=== PATIENT | female | born 1945 | race Caucasian/White ===

== ENCOUNTER 2017-03-17 09:53 | Emergency (ER) | payer MEDICARE, OTHER ==
[2017-03-17 10:37] LABS: BASOPHILS % 0.6 (0.0-1.5); EOSINOPHILS % 2.8 % (0.0-6.8); MEAN CORPUSCULAR HEMOGLOBIN 31.7 pg (28.0-34.0); MEAN CORPUSCULAR VOLUME 91.2 fl (80.0-100.0); MONOCYTES % 4.2 % (0.0-11.0); NEUTROPHILS # 5.9 # k/uL (1.4-7.7)
[2017-03-17 10:57] LABS: eGFR (African) > 60; eGFR (Non-African) > 60
[2017-03-17] MEDS ORDERED: 0.9 % SODIUM CHLORIDE 1,000 ML IV ONE (11:00)
--- NOTE | 2017-03-17 11:18 | Diagnostic Imaging Report ---
JOSE REDD (TOOL CRIB SUPERVISOR) - ER [facility] [address] [facility] [address] [address] Report Submission Date: Mar 17, 2017 10:54:41 AM POSTAL CLERK Patient Study Name: MARELY BLANDON Date: Mar 17, 2017 10:43:19 AM POSTAL CLERK Modality Type: CR Gender: F Description: CHEST : 45 Institution: [facility] Physician: JOSE REDD) - ER Examination: Portable chest History: Evaluate lungs Comparison exam: None provided Findings: Single view of the chest demonstrates a normal cardiac and mediastinal silhouette. Chronic appearing interstitial changes. Lung ohara without focal infiltrate. No blunting of the costophrenic margins. Left midlung granuloma. Osseous structures are appropriate for age. Impression: No acute appearing pulmonary process. Electronically signed on Mar 17, 2017 10:54:41 AM POSTAL CLERK by: Spencer MANE
[2017-03-17] MEDS ORDERED: CloNIDine HCL 0.1 MG TABLET PO ONE ×2 (11:37→11:38)
--- NOTE | 2017-03-17 12:03 | ED Physician Documentation ---
Upper Respiratory Symptoms - HISTORIAN Historian: patient - HPI Stated Complaint: SOA Chief Complaint: Cough/ Upper Respiratory Onset: hours Severity: mild Associated Symptoms: sore throat, hoarseness. denies: fever, chills, sweating, earache, runny nose, sinus pain, sinus drainage, hay fever, shortness of breath Worsened by Deep Breath: No Further Comments: yes (71 year old female patient presents with complaints of being "hoarse" and anxious. Patient reports symptoms started around [id number], did not use any OTC medication ACCESS RN.) - ROS CONST/EYES: denies: weakness CVS/RESP: none LYMPH: denies: leg swelling, rash, swollen glands, ankle swelling, other GI/: none NEURO/PSYCH: denies: fainting, dizziness, confusion, anxiety, depression, other MS/SKIN: denies: joint pain, muscle aches, rash, other - PAST HX Lung Disease: none PE Risk Factors: hypertension Other History: other (chronic sinusitis) Allergies/Adverse Reactions: Allergies Allergy/AdvReac Type Severity Reaction Status Date / Time albuterol AdvReac Tremors Verified 03/17/17 10:46 Home Medications: Ambulatory Orders Medication Instructions Recorded Fexofenadine HCl 180 mg PO DAILY #30 u2 05/16/12 Triamcinolone Acetonide [Nasacort] 10.8 ml NS DAILY 03/12/14 amLODIPine BESYLATE [Norvasc] 5 mg PO DAILY #30 tablet 03/17/17 - SOCIAL HX Smoking History: non-smoker - FAMILY HX Family History: denies: none - VITAL SIGNS Vital Signs: Vital Signs Temp Pulse Resp BP Pulse Ox 97.4 F L 84 19 161/86 98 03/17/17 09:53 03/17/17 12:20 03/17/17 12:20 03/17/17 12:20 03/17/17 12:20 - REVIEWED ASSESSMENTS Nursing Assessment Reviewed: Yes Vitals Reviewed: Yes Progress - Progress Progress: Discussed hypertension. Patient reports she was on lisinopril which caused her to cough. Dr Saleh changed to losartan, but she stopped that over 1 year ago. " I didn't like it." Patient has not followed up with PCP regarding BP. Case discussed with Dr Saleh. Will start patient on norvasc 5mg po qd. Hypertension retreated with clonidine while in ER. Improved with 1 dose. Education on hypertension, strongly encouraged follow up. Reviewed lab results; questions answered. ED Results Lab/Radiology - Lab Results Lab Results: Lab Results 03/17/17 03/17/17 03/17/17 11:00 10:29 10:25 WBC RBC Hgb Hct MCV MCH MCHC RDW Plt Count Neut % (Auto) Lymph % (Auto) [place] % (Auto) Eos % (Auto) Baso % (Auto) Neut # (Auto) Lymph # (Auto) [place] # (Auto) Eos # (Auto) Baso # (Auto) Reactive Lymphs % Reactive Lymphs # Sodium 142 mmol/L mmol/L (136-145) Potassium 3.7 mmol/L mmol/L (3.5-5.1) Chloride 105 mmol/L mmol/L (98-107) Carbon Dioxide 25 mmol/L mmol/L (22-30) BUN 18 mg/dL H mg/dL (7-17) Creatinine 0.70 mg/dL mg/dL (0.52-1.04) Estimated Creat Clear 105 Est GFR ( Amer) > 60 (60 - ) Est GFR (Non-Af Amer) > 60 (60 - ) Glucose 106 mg/dL mg/dL (74-106) Calcium 9.9 mg/dL mg/dL (8.4-10.2) Total Bilirubin 0.4 mg/dL mg/dL (0.2-1.3) AST 25 U/L U/L (15-46) ALT 38 U/L U/L (13-69) Alkaline Phosphatase 69 U/L U/L (38-126) Troponin I < 0.03 ng/mL L ng/mL (0.03-0.06) Total Protein 7.3 g/dL g/dL (6.3-8.2) Albumin 4.2 g/dL g/dL (3.5-5.0) Influenza A (Rapid) Negative (NEGATIVE) Influenza B (Rapid) Negative (NEGATIVE) 03/17/17 10:25 WBC 8.80 K/ul K/ul (4.00-12.00) RBC 4.77 M/ul M/ul (3.90-5.20) Hgb 15.1 g/dL g/dL (12.0-16.0) Hct 43.5 % % (34.5-46.5) MCV 91.2 fl fl (80.0-100.0) MCH 31.7 pg pg (28.0-34.0) MCHC 34.8 g/dL g/dL (30.0-36.0) RDW 13.5 % % (11.3-14.3) Plt Count 218 K/mm3 K/mm3 (130-400) Neut % (Auto) 67.9 % % (39.0-79.0) Lymph % (Auto) 23.0 % % (16.0-50.0) [place] % (Auto) 4.2 % % (0.0-11.0) Eos % (Auto) 2.8 % % (0.0-6.8) Baso % (Auto) 0.6 (0.0-1.5) Neut # (Auto) 5.9 # k/uL # k/uL (1.4-7.7) Lymph # (Auto) 2.0 # k/uL # k/uL (0.6-4.0) [place] # (Auto) 0.4 # k/uL # k/uL (0.0-0.9) Eos # (Auto) 0.2 # k/uL # k/uL (0.0-0.6) Baso # (Auto) 0.0 # k/uL # k/uL (0.0-0.5) Reactive Lymphs % 1.5 % % (0.0-5.0) Reactive Lymphs # 0.1 # k/uL # k/uL (0.0-0.8) Sodium Potassium Chloride Carbon Dioxide BUN Creatinine Estimated Creat Clear Est GFR ( Amer) Est GFR (Non-Af Amer) Glucose Calcium Total Bilirubin AST ALT Alkaline Phosphatase Troponin I Total Protein Albumin Influenza A (Rapid) Influenza B (Rapid) - Orders Orders: ED Orders Category Date Time Status Continuous EKG monitoring Q30M Care 03/17/17 10:01 Active Continuous Pulse Oximetry Q30M Care 03/17/17 10:[address] IV Lock 1T Care 03/17/17 10:01 Active CHEST 2 VIEW [CHEST P.A.&LAT 2 VIEWS] [RAD] Stat Exams 03/17/17 Completed CBC/PLATELET/DIFF Stat Lab 03/17/17 10:25 Completed CMP Stat Lab 03/17/17 10:25 Completed INFLUENZA A&B Stat Lab 03/17/17 10:29 Completed TROPONIN I (cTnI) Stat Lab 03/17/17 11:00 Completed 0.9 % Sodium Chloride [Normal Saline] 1,000 ml Med 03/17/17 11:00 Discontinued IV NOW CloNIDine HCL [Catapress] Med 03/17/17 11:38 Discontinued 0.1 mg PO .STK-MED ONE CloNIDine HCL [Catapress] Med 03/17/17 11:37 Discontinued 0.1 mg PO NOW ONE EKG WITH COMPARISON Stat Ther 03/17/17 10:01 Ordered Upper Respiratory Symptoms - EXAM General Appearance: no acute distress, alert EENT: eyes nml inspection, nml ENT inspection, lids & conjunct. nml, PERRL, ear nml, nose nml, pharynx nml, airway nml, other (mildly hoareness noted. ) Respiratory: no resp. distress, breath sounds nml, no pain on inspiration, speaks full sentences, no pleuritic chest pain Abdomen: non-tender, no organomegaly, nml bowel sounds, no distention CVS: reg rate & rhythm, heart sounds normal, equal pulses, no murmur, no gallop , PMI nml, no JVD, no friction rub, 24 Skin: color nml, no rash, warm,dry Extremities: non-tender, normal range of motion, no evidence of injury, no edema , J, PATROL MAN Neuro/Psych: oriented x3, neuro intact, mood/affect nml, CN's nml as tested Discharge Clincal Impression: Laryngitis, Anxiety Hypertension Qualifiers: Hypertension type: essential hypertension Qualified Code(s): I10 - Essential ( primary) hypertension Prescriptions: amLODIPine BESYLATE [Norvasc] 5 mg PO DAILY #30 tablet Additional Instructions: collection supervisor your prescription and start it in the morning. Chloraseptic spray or lozenges as needed for throat pain. Warm salt water gargles as needed pain Increase your fluid intake juices, hot tea, non-caffeinated beverages Follow up with Dr Saleh next week for a BP check and to discuss anxiety management. Condition: Stable Disposition: 01 HOME, SELF-CARE Decision to Admit: NO Decision Time: 12:10
[2017-03-17 12:31] VITALS: BP 161/86
== END 2017-03-17 12:20 | disposition home or self-care (01) ==
LOC: ED 09:53
DX: J02.9 Acute pharyngitis, unspecified (principal); I10 Essential (primary) hypertension; F41.9 Anxiety disorder, unspecified
CPT/HCPCS: 71020; 80053; 84484; 85025; 87400; 96360; 99283; J7030; S1016

== ENCOUNTER 2017-06-25 18:27 | Emergency (ER) | payer MEDICARE, OTHER ==
[2017-06-25] MEDS ORDERED: LEVALBUTEROL HCL 1.25 MG/3 ML AMPUL.NEB NEB ONE ×2 (18:41→19:42)
--- NOTE | 2017-06-25 18:47 | ED Physician Documentation ---
General Adult - HISTORIAN Historian: patient - HPI Stated Complaint: wheezing Chief Complaint: General Adult Additional Information: Three days of increased wheezing in known asthmatic. Napoleon snot needed to use her nebulizer in years, and it no longer works. Allergic to albuterol (heart rate to 220) but can use levalbuterol. Seen at walk in clinic yesterday and started prednisone and zithromax. No better today. Had temp of 100 yesterday. Two hospitalizations for asthma but never intubated. No other modifying factors or associated signs.. - ROS CONST: fever (see above) - PAST HX Past History: asthma - SOCIAL HX Smoking History: non-smoker - FAMILY HX Family History: No (no significant) - VITAL SIGNS Vital Signs: Vital Signs Temp Pulse Resp BP Pulse Ox 161/86 03/17/17 12:20 - REVIEWED ASSESSMENTS Nursing Assessment Reviewed: Yes Vitals Reviewed: Yes <MICHAEL LIN - Last Filed: 06/25/17 19:12> - VITAL SIGNS Vital Signs: Vital Signs Temp Pulse Resp BP Pulse Ox 98.2 F 130 H 22 178/135 90 L 06/25/17 18:27 06/25/17 18:27 06/25/17 18:27 06/25/17 18:27 06/25/17 18:27 <Garrison Gomes - Last Filed: 06/25/17 22:55> - PAST HX Allergies/Adverse Reactions: Allergies Allergy/AdvReac Type Severity Reaction Status Date / Time albuterol AdvReac Tremors Verified 03/17/17 10:46 iodine AdvReac Anaphylaxis Verified 06/25/17 19:27 levofloxacin [From Levaquin] AdvReac Anaphylaxis Verified 06/25/17 19:27 metronidazole AdvReac Anaphylaxis Verified 06/25/17 19:27 Home Medications: Ambulatory Orders Medication Instructions Recorded Fexofenadine HCl 180 mg PO DAILY #30 u2 05/16/12 Triamcinolone Acetonide [Nasacort] 10.8 ml NS DAILY 03/12/14 Progress - Progress Progress: care to Dr. Gomes <MICHAEL LIN - Last Filed: 06/25/17 19:12> ED Results Lab/Radiology - Orders Orders: ED Orders Category Date Time Status CHEST 2VIEW [RAD] Stat Exams 06/25/17 Ordered Levalbuterol HCl [Xopenex] Med 06/25/17 18:41 Once 1.25 mg NEB NOW ONE <MICHAEL LIN - Last Filed: 06/25/17 19:12> - Orders Orders: ED Orders Category Date Time Status CHEST 2VIEW [RAD] Stat Exams 06/25/17 Completed Acetylcysteine [Mucomyst] Med 06/25/17 20:34 Discontinued 200 mg PO NOW ONE Acetylcysteine [Mucomyst] Med 06/25/17 22:41 Discontinued 200 mg PO NOW ONE Levalbuterol HCl [Xopenex] Med 06/25/17 18:41 Discontinued 1.25 mg NEB NOW ONE Levalbuterol HCl [Xopenex] Med 06/25/17 19:42 Discontinued 1.25 mg NEB NOW ONE methylPREDNISolone SOD SUCC [Solu-MEDROL] Med 06/25/17 19:43 Discontinued 125 mg IM NOW ONE <Garrison Gomes - Last Filed: 06/25/17 22:55> General Adult Physical Exam - PHYSICAL EXAM GENERAL APPEARANCE: mild distress EENT: eye inspection normal, ENT inspection normal, pharynx normal NECK: supple RESPIRATORY: no resp distress, wheezes (throughout) CVS: reg rate & rhythm, heart sounds normal BACK: other (thoracic kyphosis; fluid movements w/o pain) SKIN: warm/dry, normal color EXTREMITIES: no evidence of injury NEURO: CN's nml as tested, motor nml, sensation nml, cognition normal <MICHAEL LIN - Last Filed: 06/25/17 19:12> - PHYSICAL EXAM ABDOMEN: soft, no organomegaly, no distension <Garrison Gomes - Last Filed: 06/25/17 22:55> Discharge <MICHAEL LIN - Last Filed: 06/25/17 19:12> Comments: home use neb cpt-fu w/pcp as directed Decision to Admit: NO Decision Time: 22:55 <Garrison Gomes Last Filed: 06/25/17 22:55> Clincal Impression: acute exaberation copd asthma Referrals: Gayatri Saleh MD [Primary Care Provider] - 2 Days Condition: Good Disposition: 01 HOME, SELF-CARE
--- NOTE | 2017-06-25 19:41 | Diagnostic Imaging Report ---
MICHAEL LIN [address] [facility] [address] [address] Report Submission Date: Jun 25, 2017 7:37:20 PM CDT Patient Study Name: MARELY BLANDON Date: Jun 25, 2017 6:47:38 PM CDT Modality Type: DX Gender: F Description: CHEST : 45 Institution: Physician: MICHAEL LIN HISTORY: 71-year-old female with wheezing, swelling and ankles, history of asthma. COMPARISON: None available. TECHNIQUE: 2 views of the chest were performed. FINDINGS: There are calcified granulomas in the left lung. No pneumothorax, consolidative infiltrates, pleural effusions, or pulmonary edema. There may be calcified lymph nodes in the left hilum. The heart is borderline enlarged. There is mild to moderate thoracic degenerative disc disease. IMPRESSION: Old granulomatous disease of the chest without evidence of acute intrathoracic process. Electronically signed on Jun 25, 2017 7:37:20 PM CDT by: Yuriy MANE
[2017-06-25] MEDS ORDERED: methylPREDNISolone SOD SUCC 125 MG/2 ML VIAL IM ONE (19:43)
[2017-06-25] MEDS ORDERED: ACETYLCYSTEINE 200MG/ML 30ML PO ONE ×2 (20:34→22:41)
[2017-06-25 23:34] VITALS: BP 139/80
== END 2017-06-25 23:05 | disposition home or self-care (01) ==
LOC: ED 18:27
DX: J44.1 Chronic obstructive pulmonary disease with (acute) exacerbation (principal); J45.998 Other asthma
CPT/HCPCS: 71046; J0132; J2930; J7614; 94640; 96372; 99284

== ENCOUNTER 2017-06-27 07:36 | Emergency (ER) | payer MEDICARE, OTHER ==
--- NOTE | 2017-06-27 07:54 | ED Physician Documentation ---
General Adult - HISTORIAN Historian: patient, spouse - HPI Stated Complaint: sob Chief Complaint: General Adult Onset: days ago Timing: still present Severity: moderate Further Comments: yes (Pt is a 71 yo female with sob/wheezing and slight pain, 1 /10 severity, in her R upper back. Pt has hx asthma with 2 hospitalizations, but these occurred years ago and pt has not had asthma attacks until this past week. Pt was seen in clinic last week and rx'd steroids and zithromax. She came to ER on 2 days ago and was tx'd with xopenex and mucomyst. Pt has had adverse reactions to albuterol and reported that mucomyst had been given to her in the past to good effect. Pt came to ER because her home nebulizer is old and no longer works. She was given a rx for a new nebulizer 2 days ago, but has not got the nebulizer yet.) - ROS CONST: no problems EYES/ENT: none CVS/RESP: chest pain (slight upper back pain), shortness of breath GI/: none MS/SKIN/LYMPH: none - PAST HX Past History: asthma, hypertension, other (anxiety) Surgeries/Procedures: other (oral surgery) Allergies/Adverse Reactions: Allergies Allergy/AdvReac Type Severity Reaction Status Date / Time albuterol AdvReac Tremors Verified 06/27/17 08:05 iodine AdvReac Anaphylaxis Verified 06/27/17 08:05 levofloxacin [From Levaquin] AdvReac Anaphylaxis Verified 06/27/17 08:05 metronidazole AdvReac Anaphylaxis Verified 06/27/17 08:05 Home Medications: Ambulatory Orders Medication Instructions Recorded Fexofenadine HCl 180 mg PO DAILY #30 u2 05/16/12 Triamcinolone Acetonide [Nasacort] 10.8 ml NS DAILY 03/12/14 - SOCIAL HX Smoking History: non-smoker - FAMILY HX Family History: No - VITAL SIGNS Vital Signs: Vital Signs Temp Pulse Resp BP Pulse Ox 139/80 06/25/17 23:29 - REVIEWED ASSESSMENTS Nursing Assessment Reviewed: Yes Vitals Reviewed: Yes Progress - Progress Progress: CXR: 1. Possible minimal basilar atelectasis.. No focal consolidation, pleural effusion or pneumothorax. Pulmicort HFN Xopenex HFN Mucomyst 20% solution 3 ml HFN x 1 improved. Rx Xopenex (1.25mg/3ml). One HFN tx tid prn. 24 vials, 2 RF - EKG/XRAY/CT EKG: NSR (HR=98; normal axis; normal MT interval.) General Adult Physical Exam - PHYSICAL EXAM GENERAL APPEARANCE: mild distress EENT: pharynx normal NECK: normal inspection, supple RESPIRATORY: chest non-tender, wheezes CVS: reg rate & rhythm, heart sounds normal, no murmur ABDOMEN: soft, no organomegaly, normal bowel sounds BACK: normal inspection, no CVA tenderness SKIN: warm/dry, normal color EXTREMITIES: non-tender, normal range of motion, no evidence of injury, no edema NEURO: oriented X3, motor nml, sensation nml Discharge Clincal Impression: wheezing Referrals: Gayatri Saleh MD [Primary Care Provider] - Condition: Stable Disposition: 01 HOME, SELF-CARE Decision to Admit: NO Decision Time: 11:33
[2017-06-27] MEDS ORDERED: ASPIRIN 81 MG CHEW TAB PO ONE ×2 (07:59→08:10)
[2017-06-27] MEDS ORDERED: BUDESONIDE 0.5MG/2ML AMPUL.NEB NEB ONE (08:18)
[2017-06-27] MEDS ORDERED: LEVALBUTEROL HCL 1.25 MG/3 ML AMPUL.NEB NEB ONE (08:29)
[2017-06-27] MEDS ORDERED: BUDESONIDE 0.5MG/2ML AMPUL.NEB NEB SCH (09:00)
[2017-06-27 09:01] LABS: eGFR (African) > 60; eGFR (Non-African) > 60
[2017-06-27 09:06] LABS: BASOPHILS % 0.2 (0.0-1.5); MEAN CORPUSCULAR HEMOGLOBIN 30.7 pg (28.0-34.0); MEAN CORPUSCULAR VOLUME 92.9 fl (80.0-100.0); NEUTROPHILS # 11.9 # k/uL (1.4-7.7)
[2017-06-27] MEDS ORDERED: ACETYLCYSTEINE 200MG/ML 30ML PO ONE (09:35)
[2017-06-27] MEDS ORDERED: 0.9 % SODIUM CHLORIDE 500 ML IV ONE (10:11)
[2017-06-27] MEDS ORDERED: 0.9 % SODIUM CHLORIDE 1,000 ML IV ONE ×2 (10:17)
[2017-06-27] MEDS ORDERED: ACETYLCYSTEINE 200MG/ML 30ML INH ONE (10:30)
[2017-06-27 11:23] VITALS: BP 156/80
--- NOTE | 2017-06-27 15:09 | Diagnostic Imaging Report ---
[facility] [address] [facility] [address] Report Submission Date: Jun 27, 2017 8:51:17 AM CDT Patient Study Name: MARELY BLANDON Date: Jun 27, 2017 8:04:50 AM CDT Modality Type: DX Gender: F Description: CHEST : 45 Institution: [facility] Physician: CURTIS JOSHUA Single frontal view of the chest History: PT STATES CHEST PAIN,SOB,PRODUCTIVE COUGH X4 DAYS Comparison: June 25, 2017 Cardiac size is upper limits of normal. 7 mm left midlung calcified granuloma is again noted. Minimal basilar haziness.. No pleural effusion or pneumothorax. No acute osseous pathology. Impression: 1. Possible minimal basilar atelectasis.. No focal consolidation, pleural effusion or pneumothorax. Electronically signed on Jun 27, 2017 8:51:17 AM CDT by: Tami MANE
== END 2017-06-27 11:19 | disposition home or self-care (01) ==
LOC: ED 07:36
DX: J45.998 Other asthma (principal); I10 Essential (primary) hypertension
CPT/HCPCS: 71045; 80053; 82550; 82553; 83690; 83880; 84484; 85025; 85379; 85610; 85730; 93005; J0132; J7030; J7614; J7626; 94640; 96365; 99283; S1016

== ENCOUNTER 2017-07-09 13:55 | Outpatient (CLI) | payer MEDICARE, OTHER ==
--- NOTE | 2017-07-23 11:10 | CONSULTATION REPORT ---
PRIMARY CARE PROVIDER: Dr. Gayatri Saleh CONSULTING PHYSICIAN: Emmy Hamm MD CHIEF COMPLAINT: "I would like some help managing my asthma." SIGNIFICANT PROBLEM LIST: 1. Asthma diagnosed in 1976. 2. Hypertension. 3. Obstructive sleep apnea (ELVIRA). 4. History of pneumonia. 5. History of DVT. 6. "White count hypertension." 7. Multiple environmental allergies. HISTORY OF PRESENT ILLNESS: This is a 71-year-old female who has had a long history of asthma and would like some input with her medications and how to control her asthma. Overall, her asthma is usually very well controlled, she is usually off of prednisone. She is unable to take albuterol or salmeterol but can take levalbuterol (Xopenex). Patient states she developed a viral URI on June 24, 2017. She saw a nurse practitioner for cough and sinus congestion. She was prescribed Benzonatate, a prednisone taper, and azithromycin. Her shortness of breath worsened and she presented to [facility] Emergency Department on June 25. A chest x-ray was done and she required 3 nebulized doses of Xopenex, Mucomyst, and was given methylprednisolone 125 mg. She was also given Pulmicort (budesonide). On June 28, patient saw Dr. Saleh who put her on a prednisone taper and azithromycin. She currently states she is feeling better and she is finishing her prednisone taper. Patient brought all of her respiratory and sinus medicines with her. It was all on the bedside table and we reviewed all the medicines together. One thing that became apparent is that she was taking suboptimal doses of fluticasone and using theophylline on a p.r.n. basis. She states that she does have problems with sinus congestion and that her sinus problems can exacerbate her asthma. Currently, she is using a steroid nasal spray but only on a p.r.n. basis. She is also using Claudia and Sudafed. She states that these are her environmental allergies, pine, (both inhaled and contact), cedar, cottonwood, oak pollen, smoke, mold, mildew, scented candles , except lavender, ingested moctezuma peppers, and Cool Whip. Patient denies chest pain. There is no PND. There is no edema. Her weight is stable. Appetite is good. Energy level is good. Currently, there is a cough , nonproductive, and it is improving. She denies fever, chills, or sweats. There has been no hemoptysis. She has been on prednisone and antibiotics for her lung disease. Tobacco use: Life-long nonsmoker. REVIEW OF SYSTEMS: Please see HPI for pertinent review of systems. Also, please see [facility] patient intake record. ALLERGIES: 1. Metronidazole. 2. Albuterol. 3. Iodine. 4. Levofloxacin. MEDICATIONS: 1. Xopenex 1 puff b.i.d. and p.r.n. 2. Flovent 220 mcg 1 puff daily and p.r.n. 3. Theophylline 300 mg p.r.n. shortness of breath. 4. Zafirlukast 20 mg b.i.d. 5. Claudia 180 mg daily. 6. Guaifenesin p.r.n. for cough. 7. Sudafed p.r.n. for sinus drainage. 8. Triamcinolone nasal spray 1 spray p.r.n. 9. Prednisone taper that will finished within several days. 10. Amlodipine 5 mg p.r.n. prior to doctor visits. 11. Umeclidinium 1 inhalation daily given as a sample. 12. Multiple supplements including Gelatin, Beet root, D-mannose, Qunol. SOCIAL HISTORY: She lives with her . 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 FAMILY HISTORY: Father with heart disease. PHYSICAL EXAMINATION: VITAL SIGNS: BP: 168/120 (Please note, blood pressure re-taken after the appointment was 147/98), P: 112, R: 20, T: 96.8. Room air oxygen saturation was 95%. Height: 5 feet 2 inches. Weight: 165 pounds. BMI of 30.2. Class 1 obesity. GENERAL: This is a well-developed, well-nourished female in no acute distress speaking in full sentences. HEENT: Pupils are equal and reactive to light. Oropharynx is clear. No thrush. No erythema. NECK: Supple. No JVD. No lymphadenopathy. No thyromegaly. LUNGS: Good bilateral air excursion. No wheezes, crackles, or rhonchi. CARDIAC: Rate and rhythm are regular. S1 and S2, without S3 or S4 or murmur. No gallops or rubs. ABDOMEN: Obese. Soft. Positive bowel sounds. Nontender. No organomegaly. EXTREMITIES: No cyanosis, clubbing, or edema. NEUROLOGIC: Alert and oriented x3. Grossly nonfocal exam. IMAGING: Imaging independently reviewed by me personally. 1. Chest x-ray on June 27, 2017. Portable film. Left upper lobe granuloma. Bi-basilar atelectasis. 2. Chest x-ray on June 25, 2017. Left upper lobe granuloma. Peribronchial cuffing. No infiltrate. LABORATORIES: 1. Chemistry done on June 27, 2017. Sodium 144, potassium 4, chloride 104 , bicarbonate 23, BUN 21, creatinine 0.7, glucose 176. 2. CBC done on June 27, 2017. Hemoglobin 16, hematocrit 48, white blood cell count 14.4, platelets 255,000. ASSESSMENT AND PLAN: PROBLEM #1. Asthma. With the patient, we have reviewed all of her medicines and how she is taking them. PLAN: 1. Increase the Flovent 220 mcg to 2 puffs b.i.d. regularly. This is not a p.r.n. medication. 2. Addition of tiotropium 18 mcg capsule, 1 inhalation daily. 3. I have reviewed the medical letter treatment of asthma with the patient and I have given her a copy of this. PROBLEM #2: Sinus congestion. PLAN: 1. Two sprays of nasal triamcinolone daily. Again, this is not a p.r.n. medication. 2. Patient to return in 6 weeks. PROBLEM #3: Obstructive sleep apnea. Due to time constraints, we did not discuss this issue. PLAN: Discuss at next visit. cc: Dr. Gayatri MANE
== END 2017-07-09 13:56 ==
LOC: PULMONARY 13:55
PROVIDERS: ATTEND Internal Medicine Pulmonary Disease
DX: J45.909 Unspecified asthma, uncomplicated (principal); R09.81 Nasal congestion; G47.33 Obstructive sleep apnea (adult) (pediatric); I10 Essential (primary) hypertension; J30.9 Allergic rhinitis, unspecified
CPT/HCPCS: 99214; G0463

== ENCOUNTER 2017-09-24 11:32 | Outpatient (CLI) | payer MEDICARE, OTHER ==
--- NOTE | 2017-10-01 18:28 | OP Clinic Progress Note ---
PRIMARY CARE PROVIDER: Dr. Gayatri Saleh CHIEF COMPLAINT: "My asthma is better." SIGNIFICANT PROBLEM LIST: 1. Asthma diagnosed in 1976. 2. Hypertension. 3. Obstructive sleep apnea. 4. History of pneumonia. 5. History of deep venous thrombosis (DVT). 6. "White coat hypertension." 7. Multiple environmental allergies HISTORY OF PRESENT ILLNESS: This is a 71-year-old female who returns to the Pulmonary Clinic to assess her asthma. She states that she feels great. She has taken the previous recommendation and has increased her Flovent to 2 puffs b.i.d. and she has increased her nasal triamcinolone to 2 sprays each nostril daily. She states that she has not had to use any Xopenex p.r.n. and is no longer using theophylline. I had given her a prescription for tiotropium at our last visit. Her pharmacy was unable to fill that due to her insurance and she was given Incruse Ellipta ( umeclidinium) instead. She states she used it for a short while but, overall, she felt that she did not need it. She states that she will keep it and use it if she gets more short of breath. ALLERGIES: 1. Metronidazole 2. Albuterol. 3. Iodine. 4. Levofloxacin. MEDICATIONS: 1. Xopenex 1 puff p.r.n. 2. Flovent 220 mcg 2 puffs b.i.d. 3. Theophylline 300 mg p.r.n. shortness of breath. 4. Zafirlukast 20 mg b.i.d. 5. Claudia 180 mg daily. 6. Guaifenesin syrup p.r.n. 7. Sudafed p.r.n. for sinus drainage. 8. Triamcinolone nasal spray 1 spray b.i.d. 9. D-mannose 1 capsule daily. 10. Qunol 1 capsule daily. 11. Multivitamin 1 tablet daily. 12. Alaway eye drops. 13. Opcon eye drops. 14. Umeclidinium 1 inhalation p.r.n. 15. Gelatin 1300 mg daily. 16. Beet root 1000 mg daily. 17. Clonidine 0.1 mg prior to doctor's appointments p.r.n. PHYSICAL EXAMINATION: VITAL SIGNS: BP: 140/97, P: 90, R: 20, T: 98.5, room air oxygen saturation was 97%. Weight: 164 pounds (Increase by 1 pound since 07-09-17). GENERAL: This is a well-developed, well-nourished female in no acute distress speaking in full sentences. HEENT: Pupils are equal and reactive to light. Oropharynx is clear. No thrush. No erythema. NECK: Supple. No lymphadenopathy. LUNGS: Good bilateral air excursion. Clear. No wheezes, rhonchi or rales. CARDIAC: Rate and rhythm are regular. No murmur, rubs, or gallops. ABDOMEN: Obese. Soft and nontender. EXTREMITIES: No edema, cyanosis, or clubbing. NEUROLOGIC: Alert and oriented x3. Grossly nonfocal physical exam. IMAGING: All imaging was independently reviewed by me personally. 1. Chest x-ray on June 25, 2017. Left granuloma. Right lung atelectasis. 2. Chest x-ray on June 27, 2017. Portable film. Left upper lobe granuloma. ASSESSMENT AND PLAN: PROBLEM #1: Asthma. Patient's asthma currently under very good control. She has incorporated my suggestions from our last visit and now using the appropriate doses of Flovent and nasal triamcinolone. PLAN: 1. Continue Flovent 220 mcg 2 puffs b.i.d. 2. Use umeclidinium on a p.r.n. basis for significant asthma exacerbations ( please see Medical Letter for reference). 3. Continue Xopenex p.r.n. as a rescue inhaler. PROBLEM #2: Sinus congestion. Again, this is much improved since the patient started using triamcinolone at the proper dose and frequency. PLAN: Continue nasal triamcinolone 2 sprays each nostril daily. PROBLEM #3: Obstructive sleep apnea. Again, due to time constraints, we did not discuss this issue. PLAN: 1. Does need to be discussed at subsequent visit. 2. Follow up in December 2017. cc: Dr. Gayatri MANE
== END 2017-09-24 11:33 ==
LOC: PULMONARY 11:32
PROVIDERS: ATTEND Internal Medicine Pulmonary Disease
DX: J45.909 Unspecified asthma, uncomplicated (principal); R09.81 Nasal congestion; G47.33 Obstructive sleep apnea (adult) (pediatric)
CPT/HCPCS: 99214; G0463

== ENCOUNTER 2018-01-07 10:47 | Outpatient (CLI) | payer MEDICARE, OTHER ==
--- NOTE | 2018-01-18 12:18 | OP Clinic Progress Note ---
PRIMARY CARE PROVIDER: Dr. Gayatri Saleh CHIEF COMPLAINT: "I had pneumonia in November." SIGNIFICANT PROBLEM LIST: 1. Asthma diagnosed in 1976. 2. Hypertension. 3. Obstructive sleep apnea. 4. History of pneumonia. 5. History of DVTs. 6. "White coat hypertension." 7. Multiple environmental allergies. HISTORY OF PRESENT ILLNESS: This is a 72-year-old female who was in [place], [place], visiting her son. She developed a cough, fever, and sputum production. She went to the emergency department and was told she had left lower lobe pneumonia. She was treated with ceftriaxone and azithromycin in the emergency department. She was not admitted, and she was sent home with Augmentin and prednisone. She states she feels fine now excepts she notes she still has a hoarse voice. The hospital in [place] suggested she use a spacer which she is currently using. She continues to use the fluticasone 220 mcg 2 puffs b.i.d. She uses her umeclidinium on a p.r.n. basis. She has stopped using theophylline and she also is using her triamcinolone nasal spray. ALLERGIES: 1. Metronidazole. 2. Albuterol. 3. Iodine. 4. Levofloxacin. MEDICATIONS: 1. Xopenex 1 puff p.r.n. shortness of breath. 2. Fluticasone 220 mcg 2 puffs b.i.d. 3. Zafirlukast 20 mg b.i.d. 4. Claudia 180 mg daily. 5. Guaifenesin p.r.n. 6. Triamcinolone nasal spray 1 spray each nostril b.i.d. 7. D-Mannose 1 capsule daily. 8. Qunol 1 capsule daily. 9. MVI 1 tablet daily. 10. Alaway eye drops. 11. Opcon eye drops. 12. Umeclidinium 1 inhalation p.r.n. 13. Gelatin 1300 mg daily. 14. Beet root 1000 mg daily. 15. Clonidine 0.1 mg prior to doctor's appointments p.r.n. 16. Theophylline 300 mg p.r.n. (Not taking at present). PHYSICAL EXAMINATION: GENERAL: This is a well-developed obese female in no acute distress speaking in full sentences. VITAL SIGNS: BP: 148/87, P: 87, R: 20, T: 96.7, oxygen saturation is 95% on room air. Weight: 162 pounds. Height: 5 feet 2 inches. HEENT: Pupils are equal and reactive to light. Oropharynx is clear. No thrush. No erythema. NECK: Supple. No lymphadenopathy. LUNGS: Good bilateral air excursion. Clear to auscultation. No wheezes, rales, or rhonchi. CARDIAC: Rate and rhythm are regular. No murmur, rubs, or gallops. ABDOMEN: Obese. Soft and nontender. EXTREMITIES: No cyanosis, clubbing, or edema. NEUROLOGIC: Alert and oriented x3. Grossly nonfocal exam. IMAGING: Unable to review imaging because the PAC system does not work. ASSESSMENT: PROBLEM #1: Asthma. Currently doing well and is stable. Of note, she did have pneumonia treated appropriately with Augmentin and prednisone in November 2017. PLAN: 1. Continue fluticasone 220 mcg 2 puffs b.i.d. 2. Use umeclidinium on a p.r.n. basis for significant asthma exacerbation (Please see medical letter for reference). 3. Patient has asked me to rewrite her Xopenex prescription using the word levalbuterol, which is the generic for Xopenex, due to insurance procedure. Prescription written for levalbuterol 2 puffs every 2 hours p.r.n. shortness of breath or wheezing. PROBLEM #2: Sinus congestion. Patient has been using her triamcinolone nasal spray routinely and her sinuses are currently not congested. PLAN: 1. Continue nasal triamcinolone 2 sprays each nostril daily. 2. Ipratropium nasal spray 0.6% 2 sprays each nostril b.i.d. to t.i.d. p.r.n. nasal discharge. PROBLEM #3: My termination. I have instructed the patient that this will be my last day at [facility] and I have referred her to Dr. Leander Christianson if she would like to continue with a human anatomy teacher. cc: Dr. Gayatri MANE
== END 2018-01-07 10:50 ==
LOC: PULMONARY 10:47
PROVIDERS: ATTEND Internal Medicine Pulmonary Disease
DX: Z53.8 Procedure and treatment not carried out for other reasons (principal)
CPT/HCPCS: 99212

== ENCOUNTER 2018-03-07 18:50 | Emergency (ER) | payer MEDICARE, OTHER ==
[2018-03-07] MEDS ORDERED: LEVALBUTEROL HCL 1.25 MG/3 ML AMPUL.NEB NEB STA ×3 (19:00→21:17)
[2018-03-07] MEDS ORDERED: methylPREDNISolone SOD SUCC 125 MG/2 ML VIAL IVP STA (19:03)
--- NOTE | 2018-03-07 19:07 | ED Physician Documentation ---
Asthma - HISTORIAN Historian: patient - HPI Chief Complaint: Asthma Additional Information: intro self as [employer]. pt presents to the ED via POV c/o wheezing/asthma hx that worsened at 5 pm today. pt reports URI symptoms since wednesday. pt has tried home nebulizers without improvement. pt emesis x 1 here. pt reports she is allergic to albuterol-increased heart rate 220s. not effective per pt. pt denies current chest pain, syncope/near syncope, headache, dizziness, visual disturbances, diarrhea. fever/chills, rash, sick contacts, dysuria, trauma. melena or hematochezia, bleeding or easy bruising, change in bowel or bladder function, no recent weight loss/gain, anxiety or depression. ROS Negative unless otherwise specified. Duration: continues in ED Initiating Event: upper respiratory illness Associated Symptoms:: shortness of breath Current Asthma Therapy: inhaled nebulizer, other (incruse) - ROS CONST: recent illness EYES/ENT: runny nose. denies: sore throat CVS: denies: heart racing, palpitations GI/: denies: abdominal pain, problems urinating, vomiting, nausea MS/SKIN/LYMPH: denies: ankle swelling, leg pain, rash, swollen glands, leg swelling, calf pain NEURO/PSYCH: light-headedness. denies: headache, dizziness, anxiety, tingling hands, muscle spasms hands, tingling face, muscle spasms face - PAST HX Asthma: occasional attacks Lung Disease: asthma DVT/PE Risk Factors: none Allergies/Adverse Reactions: Allergies Allergy/AdvReac Type Severity Reaction Status Date / Time Metronidazole HCl Allergy Unknown Verified 03/07/18 20:44 albuterol AdvReac Tremors Verified 03/07/18 20:44 iodine AdvReac Anaphylaxis Verified 03/07/18 20:44 levofloxacin [From Levaquin] AdvReac Anaphylaxis Verified 03/07/18 20:44 metronidazole AdvReac Anaphylaxis Verified 03/07/18 20:44 Home Medications: Ambulatory Orders Medication Instructions Recorded Fexofenadine HCl 180 mg PO DAILY #30 u2 05/16/12 Triamcinolone Acetonide [Nasacort] 10.8 ml NS DAILY 03/12/14 - SOCIAL HX Smoking History: non-smoker Alcohol Use: none Drug Use: none - FAMILY HX Family History: CAD - VITAL SIGNS Vital Signs: Vital Signs Temp Pulse Resp BP Pulse Ox 156/80 06/27/17 11:19 - REVIEWED ASSESSMENTS Nursing Assessment Reviewed: Yes Vitals Reviewed: Yes Progress - Progress Progress: 2029 pt remains dyspneic after xopenex #1. 88% on 2 L. RR 30. 2120 pt remains dyspneic after xopenex #2 90% on 2 L RR 28 2140 Pt desat to 85% RA. pt requiring 4L O2 for oxygen to remain in the low 90s 215 pt remains dyspneic after xopenex #3 92% on 2 L RR [address] bills accepted pt for transfer to [facility]. - EKG/XRAY/CT EKG: rhythm (sinus tachycardia, regular, rate 119. no ectopy. ) ED Results Lab/Radiology - Radiology Radiology Impressions: Report Submission Date: Mar 07, 2018 8:10:56 PM FLY WORKER Patient Study Name: MARELY BLANDON Date: Mar 07, 2018 7:51:15 PM FLY WORKER Modality Type: DX Gender: F Description: CHEST : 45 Institution: [facility] Physician: SHAINA FUENTES Portable chest History: Dyspnea and asthma Findings: Bilateral lower lobe infiltrates or edema are observed. Cardiomegaly and calcified granulomas are observed. Small pleural effusions are not excluded. Aeration has worsened at the lung bases since 06/27/2017. Emphysema is probably present. Impression: 1. Moderate bilateral lower lobe infiltrates or edema. 2. Possibly small pleural effusions. 3. Cardiomegaly. 4. Probable emphysema. Electronically signed on Mar 07, 2018 8:10:56 PM FLY WORKER by: Juan David Webb - Orders Orders: ED Orders Category Date Time Status Place IV Lock 1T Care 03/07/18 19:02 Ordered CHEST 1VIEW [RAD] Stat Exams 03/07/18 Ordered CBC/PLATELET/DIFF Stat Lab 03/07/18 19:02 Ordered CMP [CMP] Stat Lab 03/07/18 19:03 Ordered Levalbuterol HCl [Xopenex] Med 03/07/18 19:00 Stat 1.25 mg NEB NOW STA methylPREDNISolone SOD SUCC [Solu-MEDROL] Med 03/07/18 19:03 Stat 125 mg IVP NOW STA Asthma Physical Exam - EXAM General Appearance: mild distress EENT: eye inspection normal, ENT inspection normal, pharynx normal, no signs of dehydration, [place], TM's nml Neck: nml inspection Respiratory: no resp. distress, breath sounds nml, no pain on inspiration, wheezes, no pleuritic chest pain, other (speaks partial sentences. diminished. ) CVS: reg rate & rhythm, heart sounds normal, equal pulses, no murmur, no gallop, PMI nml, no JVD, no friction rub, 24 Abdomen: non-tender, no organomegaly, nml bowel sounds, no distention Skin: color nml, no rash, warm, nml palp., dry Extremities: non-tender, normal range of motion, no evidence of injury, no edema, J, [employer] Neuro/Psych: oriented x3 Discharge Clincal Impression: Asthma exacerbation Qualifiers: Asthma severity: moderate Asthma persistence: unspecified Qualified Code(s): J45.901 - Unspecified asthma with (acute) exacerbation Pneumonia Qualifiers: Pneumonia type: due to unspecified organism Laterality: unspecified laterality Lung location: unspecified part of lung Qualified Code(s): J18.9 - Pneumonia, unspecified organism Condition: Fair Disposition: 02 XFER SHT-TRM HOSP Decision to Admit: NO Date of Decison to Admit: 03/07/18 Decision Time: 21:11
[2018-03-07] MEDS ORDERED: ONDANSETRON HCL/PF 4 MG/ 2ML VIAL IVP STA (19:20)
[2018-03-07] MEDS ORDERED: ONDANSETRON HCL/PF 4 MG/ 2ML VIAL ONE (19:22)
[2018-03-07 19:37] LABS: MEAN CORPUSCULAR HEMOGLOBIN 31.4 pg (28.0-34.0)
[2018-03-07 19:38] LABS: BASOPHILS % 0.7 (0.0-1.5); EOSINOPHILS % 1.4 % (0.0-6.8); MONOCYTES % 5.8 % (0.0-11.0); NEUTROPHILS # 15.8 # k/uL (1.4-7.7)
[2018-03-07 19:59] LABS: eGFR (Non-African) > 60
[2018-03-07] MEDS ORDERED: BUDESONIDE 0.5MG/2ML AMPUL.NEB NEB STA (20:41)
[2018-03-07] MEDS ORDERED: cefTRIAXone SODIUM 1 GM in 0.9 % SODIUM CHLORIDE(MINIBAG+ 50 ML IV STA (21:22)
[2018-03-07] MEDS ORDERED: AZITHROMYCIN 500 MG in 0.9 % SODIUM CHLORIDE 250 ML IV STA (21:23)
[2018-03-07] MEDS ORDERED: guaiFENesin 600 MG TAB.ER.12H PO STA (21:25)
[2018-03-07] MEDS ORDERED: cefTRIAXone SODIUM 1 GM INJ ONE (21:56)
[2018-03-07] MEDS ORDERED: 0.9 % SODIUM CHLORIDE 100 ML IV ONE (21:57)
[2018-03-08 00:15] VITALS: BP 164/88
--- NOTE | 2018-03-08 05:42 | Diagnostic Imaging Report ---
SHAINA FUENTES [facility] [id number] [facility] [address] [address] Report Submission Date: Mar 07, 2018 8:10:56 PM CORRECTIONS OFFICER Patient Study Name: MARELY BLANDON Date: Mar 07, 2018 7:51:15 PM CORRECTIONS OFFICER Modality Type: DX Gender: F Description: CHEST : 45 Institution: [facility] Physician: SHAINA FUENTES Portable chest History: Dyspnea and asthma Findings: Bilateral lower lobe infiltrates or edema are observed. Cardiomegaly and calcified granulomas are observed. Small pleural effusions are not excluded. Aeration has worsened at the lung bases since 06/27/2017. Emphysema is probably present. Impression: 1. Moderate bilateral lower lobe infiltrates or edema. 2. Possibly small pleural effusions. 3. Cardiomegaly. 4. Probable emphysema. Electronically signed on Mar 07, 2018 8:10:56 PM CORRECTIONS OFFICER by: Juan David MANE
[2018-03-08 07:25] LABS: APPEARANCE,URINE CLEAR (CLEAR); COLOR,URINE YELLOW (YELLOW); OCCULT BLOOD,URINE TRACE INTACT (NEGATIVE)
[2018-03-08 07:26] LABS: UROBILINOGEN URINE 0.2 Eu (0.2-1.0)
== END 2018-03-07 23:08 | disposition short-term general hospital (02) ==
LOC: ED 18:50
DX: J45.901 Unspecified asthma with (acute) exacerbation (principal); J18.9 Pneumonia, unspecified organism; R06.03 Acute respiratory distress; R09.02 Hypoxemia
CPT/HCPCS: 36415; 71045; 80053; 81002; 83605; 85025; 87040; 87086; 93005; 94640; 96365; 96367; 96375; 99285; J0456; J0696; J2405; J2930; J7050; J7614; J7626; S1016